=== PATIENT | male | born 1985 | race African-American/Black ===

== ENCOUNTER 2016-12-11 14:45 | Emergency (ER) | payer SELFPAY ==
[~2016-12-11] VITALS: Ht 180.3 cm; Wt 79.4 kg
[2016-12-11] MEDS ORDERED: NKM (15:05)
--- NOTE | 2016-12-11 15:25 | Emergency Room Report ---
History of Present Illness General Chief Complaint: Lower Back Pain or Injury Source: Patient Present Illness HPI 30YOM walk-in with acute onset since this morning, bilateral flank pain radiating to feet with nausea and anorexia. Denies vomiting, diarrhea, headache , chest pain, abd pain. States "hard to urinate this morning" and dysuria upon urination. States "I dont have an STD, I had that before." Denies penile discharge. Denies other PMHx or PSHx. Allergies: Coded Allergies: No Known Allergies (Unverified , 12/11/16) Patient History Past Medical History: none Past Surgical History: none Pertinent Family History: none Social History: Denies: alcohol use, drug use, smoking Immunizations: UTD Reviewed Nursing Documentation: PMH: Agreed, PSxH: Agreed Nursing Documentation-PMH Past Medical History: No Stated History Review of Systems All Other Systems: negative except mentioned in HPI Physical Exam Vital Signs Date Time Temp Pulse Resp B/P Pulse Ox O2 Delivery O2 Flow Rate FiO2 12/11/16 15:00 100.8 105 16 121/73 99 Room Air Sp02 EP Interpretation: reviewed, abnormal General Appearance: normal inspection, well appearing, no apparent distress, alert, GCS 15, non-toxic Head: normocephalic, atraumatic Eyes: bilateral eye EOMI, bilateral eye PERRL ENT: normal ENT inspection, hearing grossly normal, normal voice Neck: normal inspection, full range of motion, supple, no bony tend Respiratory: normal inspection, lungs clear, normal breath sounds, no respiratory distress, no retraction, no wheezing Cardiovascular #1: regular rate, rhythm, no edema Gastrointestinal: normal inspection, normal bowel sounds, soft, no guarding, no hernia, other - RLQ ttp. No rebound, guarding. Genitourinary: no CVA tenderness Musculoskeletal: normal inspection, back normal, normal range of motion, Dolly' s Sign negative Neurologic: normal inspection, alert, oriented x3, responsive, government affairs researcher III-XII nml as tested, motor strength/tone normal, speech normal Psychiatric: normal inspection, judgement/insight normal, mood/affect normal Skin: normal inspection, normal color, no rash Medical Decision Making Diagnostic Impression: Primary Impression: Right lower quadrant abdominal pain Additional Impression: Fever Qualified Codes: R50.9 - Fever, unspecified ER Course RLQ abd pain, fever - No leuks - Lactate WNL - No leuks. - CT c/w enteritis Labs and CTAP done for concern for appy however enteritis more likely Feels much better VSS Afebrile. Tolerating PO Advised to return for worsenign symptoms, vomiting, fever Rx Pepcid, Zofran Last Vital Signs Date Time Temp Pulse Resp B/P Pulse Ox O2 Delivery O2 Flow Rate FiO2 12/11/16 15:00 100.8 105 16 121/73 99 Room Air Status: improved Disposition: HOME, SELF-CARE Scripts Famotidine (PEPCID) 20 Mg Tablet 20 MG ORAL BID for 7 Days, #14 TAB 0 Refills Prov: TRU ROSADO M.D. 12/11/16 Ondansetron Odt* (ZOFRAN ODT*) 4 Mg Tab.rapdis 4 MG ORAL BID Y for Nausea & Vomiting for 7 Days, #14 TAB 0 Refills Prov: TRU ROSADO M.D. 12/11/16 TRU ROSADO M.D. December 11, 2016 15:25
[2016-12-11 15:45] LABS: MEAN CORPUSCULAR HEMOGLOBIN 34.9 PG (27.0-31.0); MEAN CORPUSCULAR HGB CONC 37.5 G/DL (32.0-36.0); MEAN CORPUSCULAR VOLUME 93 FL (80-99); MEAN PLATELET VOLUME 5.4 FL (6.5-10.1); PLATELET COUNT 207 K/UL (150-450); RED BLOOD COUNT 4.77 M/UL (4.70-6.10); RED CELL DISTRIBUTION WIDTH 10.4 % (11.6-14.8); WHITE BLOOD COUNT 6.6 K/UL (4.8-10.8)
[2016-12-11 15:46] LABS: MONOCYTES % (AUTO) 5.8 % (1.0-10.0); NEUTROPHILS % (AUTO) 90.2 % (45.0-75.0)
[2016-12-11 15:47] LABS: BASOPHILS % (AUTO) 0.5 % (0.0-2.0); EOSINOPHILS % (AUTO) 0.5 % (0.0-3.0)
[2016-12-11 15:51] LABS: APPEARANCE,URINE CLEAR; KETONES,URINE NEGATIVE (NEGATIVE); LEUKOCYTE ESTERASE ,URINE 1+ (NEGATIVE); NITRITE,URINE NEGATIVE (NEGATIVE); PH,URINE 6 (4.5-8.0); PROTEIN,URINE NEGATIVE (NEGATIVE); UROBILINOGEN,URINE NORMAL MG/DL (0.0-1.0)
[2016-12-11 15:52] LABS: ALANINE AMINOTRANSFERASE 36 U/L (3-41); ALBUMIN/GLOBULIN RATIO 1.3 (1.0-2.7); ANION GAP 17 (5-15); ASPARTATE AMINO TRANSFERASE 30 U/L (5-40); CALCIUM 9.4 mg/dL (8.6-10.2); CARBON DIOXIDE 22 mEQ/L (20-30); CHLORIDE 98 mEQ/L (98-107); GLOMERULAR FILTRATION RATE > 60 mL/min (>60); HEMOLYSIS 7; LIPASE 17 U/L (< 60); POTASSIUM 4.3 mEQ/L (3.4-4.9); SODIUM 137 mEQ/L (135-145); TOTAL PROTEIN 7.4 g/dL (6.6-8.7)
[2016-12-11 15:57] LABS: ICTOTEST NEGATIVE
[2016-12-11 16:00] LABS: BACTERIA,URINE OCCASIONAL /HPF; RBC,URINE 0-2 /HPF (0 - 0); WBC,URINE 0-2 /HPF (0 - 0)
[2016-12-11 16:01] LABS: PROTHROMBIN TIME 10.5 SEC (9.30-11.50)
[2016-12-11 16:01] LABS: MUCUS,URINE MODERATE /LPF (NONE/OCC)
[2016-12-11 16:05] VITALS: BP 118/58
[2016-12-11] MEDS ORDERED: ZOFRAN ODT4 MG ORAL (17:18)
[2016-12-11] MEDS ORDERED: PEPCID20 MG ORAL (17:18)
[2016-12-11 17:30] VITALS: BP 147/60
[2016-12-11 17:32] VITALS: BP 147/60
--- NOTE | 2016-12-12 09:18 | Diagnostic Imaging Report ---
Indication: Abdominal pain Technique: Continuous helical transaxial imaging of the abdomen and pelvis was obtained from the lung bases to the pubic symphysis during intravenous contrast administration. Coronal 2-D reformats were also obtained. Study obtained in a Siemens sensation [address] Total Dose length Product (DLP): [address] Dose Index Volume (CTDIvol): 15, 15 mGy Comparison: None Findings: There is motion limiting evaluation specially in the lower abdomen and pelvis Dilated, fluid-filled loops of small bowel are noted throughout the abdomen mild in degree. Findings likely due to enteritis/ileus. Partial bowel obstruction is not excluded. No free fluid or free air identified. The appendix is normal. Solid organs are unremarkable. Impression: Suspected enteritis/ileus. Please correlate clinically. Limited evaluation due to breathing motion Dr. Palencia has communicated the preliminary results to the Emergency Department. There are no significant discrepancies. The CT scanner at [facility] is accredited by the [employer] and the scans are performed using dose optimization techniques as appropriate to a performed exam including Automatic Exposure control.
== END 2016-12-11 17:33 | disposition home or self-care (01) ==
LOC: EMR 17:06
DX: R10.31 Right lower quadrant pain (principal); R50.9 Fever, unspecified; R11.0 Nausea; R30.0 Dysuria
CPT/HCPCS: 36415; 74177; 80053; 81003; 83605; 83690; 85025; 85610; 85730; 86850; 86900; 86901; 96374; 96375; 99284; J2405; Q9967